=== PATIENT | female | born 1975 | race African-American/Black ===

== ENCOUNTER 2020-11-22 02:27 | Emergency (ER) | payer MEDICAID, OTHER ==
[~2020-11-22] VITALS: Ht 167.6 cm; Wt 75.0 kg
[2020-11-22 03:32] LABS: BASOPHILS % 0.5 % (0.0-2.0); HEMATOCRIT. 38.1 % (36.0-48.0); HEMOGLOBIN. 12.5 g/dL (12.0-16.0); LYMPHOCYTES % 12.1 % (20.0-50.0); MEAN CORPUSCULAR HEMOGLOBIN 29.2 pg (28.0-32.0); MEAN CORPUSCULAR VOLUME 89.4 fL (81.0-99.0); MEAN PLATELET VOLUME 7.5 fl (7.4-10.4); MONOCYTES % 6.2 % (2.0-8.0); NEUTROPHILS % 80.2 % (40.0-76.0); PLATELET 326 x1000/uL (130-400); RED BLOOD CELL COUNT 4.26 mill/uL (4.2-5.4); RED CELL DISTRIBUTION WIDTH 14.4 % (11.6-14.6)
[2020-11-22 03:39] LABS: CHLORIDE 103 mEq/L (98-107)
[2020-11-22 03:42] LABS: PROTHROMBIN TIME 10.7 sec (9.6-11.0)
[2020-11-22 03:43] LABS: ETHANOL BLOOD < 10 mg/dL
[2020-11-22 03:45] LABS: LDL CHOLESTEROL 40 mg/dL (5-100)
[2020-11-22 05:36] LABS: VITAMIN B12 SERUM 900 pg/mL (211-911)
[2020-11-22 06:17] LABS: CLARITY URINE CLEAR (CLEAR); COLOR URINE YELLOW (YELLOW); KETONES URINE NEGATIVE (NEGATIVE); LEUKOCYTE ESTERASE URINE NEGATIVE (NEGATIVE); NITRITE URINE NEGATIVE (NEGATIVE); OCCULT BLOOD URINE NEGATIVE (NEGATIVE); PH URINE 5.5 (4.5-8.0); PROTEIN URINE NEGATIVE (NEGATIVE); SPECIFIC GRAVITY URINE 1.011 (1.005-1.030)
[2020-11-22 06:29] LABS: *AMPHETAMINES SCREEN URINE NEGATIVE (NEGATIVE); *BARBITURATES SCREEN URINE NEGATIVE (NEGATIVE); *BENZODIAZEPINES SCREEN URINE NEGATIVE (NEGATIVE); *COCAINE SCREEN URINE NEGATIVE (NEGATIVE); METHADONE URINE SCREEN NEGATIVE (NEGATIVE); OPIATES URINE SCREEN NEGATIVE (NEGATIVE); PHENCYCLIDINE URINE SCREEN NEGATIVE (NEGATIVE)
[2020-11-22 07:05] LABS: CANNABINOID URINE SCREEN PRESUMTIVE POSITIVE (NEGATIVE)
[2020-11-22] MEDS ORDERED: IOHEXOL-350 100 ML BOTTLE ONE (07:27)
[2020-11-22] MEDS ORDERED: ACETAMINOPHEN 325MG TABLET PO PRN ×2 (09:45)
[2020-11-22] MEDS ORDERED: CLONIDINE 0.1MG TABLET PO PRN (09:45)
[2020-11-22] MEDS ORDERED: MAGNESIUM/ALUMINUM HYDROXIDE/SIMETHICONE 30ML UDC PO PRN (09:45)
[2020-11-22] MEDS ORDERED: ZOLPIDEM TARTRATE 5MG TABLET PO PRN (09:45)
[2020-11-22] MEDS ORDERED: ONDANSETRON HCL 4MG/2ML INJ IV PRN (09:45)
[2020-11-22] MEDS ORDERED: POTASSIUM CHLORIDE 20MEQ TABLET SR PO NR (09:45)
[2020-11-22] MEDS ORDERED: DEXTROSE 50% WATER 50ML SYRINGE IV PRN (09:45)
[2020-11-22] MEDS ORDERED: BLOOD SUGAR DIAGNOSTIC STRIP TEST SCH (13:00)
[2020-11-22] MEDS ORDERED: INSULIN LISPRO 100 UNITS/ML SUBCUT SCH (13:20)
[2020-11-22] MEDS ORDERED: SODIUM CHLORIDE 0.9% INJ 3ML FLUSH IVF SCH (14:00)
[2020-11-22 14:49] VITALS: BP 118/78
== END 2020-11-22 14:50 ==
LOC: ER 02:35 → EDBEDREQSVC 04:53 → EDBEDREQTM 04:53 → EDBEDREQ 04:53 → ER 14:50 → CANBEDREQ 15:00
DX: R53.1 Weakness (principal); R47.1 Dysarthria and anarthria; F12.10 Cannabis abuse, uncomplicated
CPT/HCPCS: 36415; 70450; 70496; 70498; 71045; 80053; 80305; 80320; 81003; 82607; 82962; 83036; 83721; 84443; 84484; 85025; 85610; 93005; 99285; Q9967; Z7610; G0480